=== PATIENT | female | born 1990 | race Caucasian/White ===

== ENCOUNTER → 2017-03-03 12:05 | Observation (INO) ==
[2017-03-02 19:12] LABS: Bilirubin,Urine Small (Negative); Blood,Urine Negative (Negative); Clarity,Urine Cloudy (Clear); Color,Urine Orange (Yellow); Glucose,Urine (UA) Normal (Normal); Ketones,Urine Trace mg/dL (Negative); Leukocyte Esterase,Urine Moderate (Negative); Nitrite,Urine Positive (Negative); Protein,Urine 30 mg/dL (Neg-Trace); Specific Gravity,Urine > 1.030 (1.010-1.025); Urobilinogen,Urine Normal (Normal)
[2017-03-02 19:14] LABS: Bacteria,Urine Moderate per hpf (None-Few); Hyaline Casts,Urine Few per lpf (None-Few); Squamous Epithelial Cell,Urine Many per lpf (None-Few); WBC,Urine 50-100 per hpf (0-3)
--- NOTE | 2017-03-02 19:30 | OB/GYN Progress Note ---
Date of Encounter: 03/02/17 Time of Encounter: 19:26 - Assessment and Plan (1) Fever and chills Current Visit: Yes Status: Acute CBC, rapid flu swab, and UA collected. Plan for 1 liter LR bolus. Tylenol PRN for fever. (2) Cough Current Visit: Yes Status: Acute (3) Nausea and vomiting during Current Visit: Yes Status: Acute (4) 37 weeks gestation of Current Visit: No Status: Acute Subjective - Subjective Principal diagnosis: fever Interval history: 27 year-old presenting at 37w2d with c/o nausea/vomiting, cough, congestion, and fever. She reports fever at home 101.1 this afternoon. She has had a cough off and on since October but was worst yesterday with general ill feeling. She went to urgent care and was given Benadryl. Today she has been unable to keep anything down and then developed the fever. This has been complicated by obesity, short interval, and anxiety/depression due to the loss of her 8 month old child to SIDS in December. Antepartum ROS: movement normal, contractions (occassional), no loss of fluid, no vaginal bleeding Objective - Vital Signs Vital Signs: Intake and Output 03/02/17 03/02/17 03/02/17 07:59 15:59 23:59 Other: Weight 126 kg Patient Weight 03/02/17 23:59 Weight 126 kg - Exam FHR comments: tachycardia with moderate variability Abdomen: Present: soft, gravid. Absent: tenderness Uterus: Absent: tenderness - Labs Labs: Abnormal lab results Urine Color [place] (Yellow) A 03/02/17 19:00 Urine Clarity Cloudy (Clear) A 03/02/17 19:00 Ur Specific [place] > 1.030 (1.010-1.025) H 03/02/17 19:00 Urine Protein 30 mg/dL (Neg-Trace) H 03/02/17 19:00 Urine Ketones Trace mg/dL (Negative) H 03/02/17 19:00 Urine Nitrite Positive (Negative) A 03/02/17 19:00 Urine Bilirubin Small (Negative) H 03/02/17 19:00 Ur Leukocyte Esterase Moderate (Negative) H 03/02/17 19:00 Urine Microscopic RBC 5-15 per hpf (0-3) H 03/02/17 19:00 Urine Microscopic WBC 50-100 per hpf (0-3) H 03/02/17 19:00 Ur Squamous Epith Cells Many per lpf (None-Few) H 03/02/17 19:00 Urine Bacteria Moderate per hpf (None-Few) H 03/02/17 19:00 Ur Culture Indicated? YES (NO) A 03/02/17 19:00
[2017-03-02 19:53] LABS: Basophils % 0.3 %; Eosinophils # 0.1 K/mcL (0.0-0.6); Eosinophils % 0.7 %; Hematocrit 36.5 % (35.3-44.9); Hemoglobin 11.5 g/dL (11.5-15.4); Immature Platelets 6.6 % (1.1-6.1); Lymphocytes # 0.8 K/mcL (0.6-4.6); Mean Corpuscular HGB Conc 31.5 g/dL (31.6-35.5); Mean Corpuscular Hemoglobin 24.1 pg (28.0-33.3); Mean Corpuscular Volume 76.5 fL (83.0-100.0); Monocytes # 0.7 K/mcL (0.0-1.3); Neutrophils # 8.4 K/mcL (1.6-8.9); Platelet Count 252 K/mcL (140-400); Red Blood Count 4.77 M/mcL (3.82-4.97); Red Cell Distribution Width 15.3 % (11.5-14.5)
--- NOTE | 2017-03-02 20:07 | OB/GYN History & Physical ---
Date of Encounter: 03/02/17 Time of Encounter: 20:07 Assessment and Plan (1) Fever and chills Current visit: Yes Status: Acute UA with + nitrites, moderate leukocytes, and WBCs. Given the fever, chills, nausea and vomiting, and tachycardia, I suspect pyelonephritis. Will obs overnight for IV antibiotics. Plan for Ancef 3 gram load followed by 1 gram every 8 hours. IV LR bolus to be followed by 125ml/hr. Continuous monitoring. Anticipate discharge home after 24 hours IV antibiotics. (2) Cough Current visit: Yes Status: Acute (3) Nausea and vomiting during Current visit: Yes Status: Acute (4) 37 weeks gestation of Current visit: No Status: Acute History of Present Illness Chief complaint: Pyelonephritis HPI: 27 year-old presenting at 37w2d with c/o nausea/vomiting, cough, congestion, and fever. She reports fever at home 101.1 this afternoon. She has had a cough off and on since October but was worst yesterday with general ill feeling. She went to urgent care and was given Benadryl. Today she has been unable to keep anything down and then developed the fever. This has been complicated by obesity, short interval, and anxiety/depression due to the loss of her 8 month old child to SIDS in December. Blood type O positive. Rubella immune. Serologies and GBS negative. Past Med Surg Social Fam HX - Past Medical History Medical history: non-contributory Psychiatric history: depression - Past Surgical History Surgical History: other - Social History Smoking Status: Unknown if ever smoked Smokeless Tobacco Status: No Alcohol use: unknown Drug use: none - Family History Mother Adopted: No Family Member Ethnicity: Non- Living Status: Still Living Hx Family Cardiac Disorders: No Hx Family Respiratory Disorders: No Hx Family Cancer: No Hx Family GI Disorders: No Hx Family Genitourinary Disorders: No Hx Family Endocrine Disorder: No Hx Family Musculoskeletal Disorders: No Hx Family Neuromuscular Disorders: No Hx Family Neurologic Disorders: No Hx Family HEENT Disorders: No Hx Family Autoimmune Disorders: No Hx Family Reproductive Disorders: No Hx Family Psychosocial Disorders: No Hx Family Medical Disorders: No Obstetrical History - Pregnancies : 4 Para: 3 Term: 1 : 2 Ab's: 0 Livin - History/Complications History/Complications: 8 month old son of SIDS in December Medications and Allergies Azithromycin [Zithromax] 250 mg PO DAILY #6 tablet 11/21/16 [Rx] Benzonatate [Tessalon] 200 mg PO TID PRN #30 capsule 11/21/16 [Rx] GuaiFENesin ER [Mucinex] 600 mg PO BID #20 tbbp.12hr 11/21/16 [Rx] Amoxicillin 875 mg PO BID #20 tablet 01/19/17 [Rx] Benzonatate [Tessalon] 200 mg PO TID PRN #30 capsule 01/19/17 [Rx] Allergies No Known Allergies Allergy (Verified 01/13/16 02:09) Review of System OB All systems PM: reviewed and no additional remarkable complaints except as stated Exam - Constitutional Constitutional: well developed, well nourished, mild distress, obese, diaphoretic - HEENT HEENT: Mucus Membranes Moist - Lungs Respiratory exam: CTAB - Cardiovascular Cardiovascular exam: +S1, +S2, tachycardia - Abdomen Abdomen: Present: gravid, non tender - Extremities Extremities exam: normal inspection - Uterus Uterus exam: Present: normal size. Absent: tender - Comments Comments: negative CVAT Results Result Diagrams: 03/02/17 19:47 Abnormal lab results MCV 76.5 fL (83.0-100.0) L 03/02/17 19:47 MCH 24.1 pg (28.0-33.3) L 03/02/17 19:47 MCHC 31.5 g/dL (31.6-35.5) L 03/02/17 19:47 RDW 15.3 % (11.5-14.5) H 03/02/17 19:47 Immature Plt Fraction 6.6 % (1.1-6.1) H 03/02/17 19:47 Urine Color [place] (Yellow) A 03/02/17 19:00 Urine Clarity Cloudy (Clear) A 03/02/17 19:00 Ur Specific [place] > 1.030 (1.010-1.025) H 03/02/17 19:00 Urine Protein 30 mg/dL (Neg-Trace) H 03/02/17 19:00 Urine Ketones Trace mg/dL (Negative) H 03/02/17 19:00 Urine Nitrite Positive (Negative) A 03/02/17 19:00 Urine Bilirubin Small (Negative) H 03/02/17 19:00 Ur Leukocyte Esterase Moderate (Negative) H 03/02/17 19:00 Urine Microscopic RBC 5-15 per hpf (0-3) H 03/02/17 19:00 Urine Microscopic WBC 50-100 per hpf (0-3) H 03/02/17 19:00 Ur Squamous Epith Cells Many per lpf (None-Few) H 03/02/17 19:00 Urine Bacteria Moderate per hpf (None-Few) H 03/02/17 19:00 Ur Culture Indicated? YES (NO) A 03/02/17 19:00 All other labs normal. - VTE Reasons for not Prescribing Prophylaxis: Treatment not Indicated - Low risk for VTE
[~2017-03-03 12:05] MED LIST: Acetaminophen 325 MG TABLET PO PRN; Ondansetron 4 MG/2 ML VIAL IVP PRN; Prenatal Vit/FA 1 EACH TABLET PO SCH; Ringers Solution, Lactated 1,000 ML IVC ONE; Ringers Solution, Lactated 1,000 ML ONE; ceFAZolin 1,000 MG in D5% in Water (Mini-Bag+) 100 ML IVPB SCH; ceFAZolin 2,000 MG in D5% in Water 100 ML IVPB ONE; ceFAZolin 3,000 MG in D5% in Water 100 ML IVPB ONE
--- NOTE | 2017-03-03 12:38 | Discharge Summary ---
Date of Encounter: 03/03/17 Time of Encounter: 11:50 - Discharge Diagnosis (1) Pyelonephritis Priority: Primary Status: Resolved Comments: Pt states pain and discomfort has improved. Afebrile since hospital admission, patient has received 2 doses of antibiotics. Patient reports good movement and denies leaking of fluid or vaginal bleeding, patient states she is feeling the occasional contraction, vaginal exam done patient is 5/50/-3. Patient states she does not feel the contractions are in what she would describe as a labor pattern, patient's are occasional and not painful. Patient to be discharged home on oral antibiotics Keflex 500 mg twice a day for 10 days, labor precautions given and instructions of when to return to triage for evaluation discussed with patient and both verbalized understanding. Plan of care discussed with Dr. Bose (2) 37 weeks gestation of Priority: Primary Status: Acute - Discharge Medications Home Medications: Azithromycin [Zithromax] 250 mg PO DAILY #6 tablet 11/21/16 [Rx] Benzonatate [Tessalon] 200 mg PO TID PRN #30 capsule 11/21/16 [Rx] GuaiFENesin ER [Mucinex] 600 mg PO BID #20 tbbp.12hr 11/21/16 [Rx] Amoxicillin 875 mg PO BID #20 tablet 01/19/17 [Rx] Benzonatate [Tessalon] 200 mg PO TID PRN #30 capsule 01/19/17 [Rx] Allergies/Adverse Reactions: Allergies No Known Allergies Allergy (Verified 03/03/17 01:52) Data Procedures and tests throughout hospitalization: Laboratory Tests 03/02/17 03/02/17 19:00 19:47 WBC 10.1 RBC 4.77 Hgb 11.5 Hct 36.5 MCV 76.5 L MCH 24.1 L MCHC 31.5 L RDW 15.3 H Plt Count 252 MPV 11.0 Immature Gran % 1.0 Seg Neutrophils % 83.0 Lymphocytes % 8.0 Monocytes % 7.0 Eosinophils % 0.7 Basophils % 0.3 Neutrophils # 8.4 Lymphocytes # 0.8 Monocytes # 0.7 Eosinophils # 0.1 Basophils # 0.0 Immature Plt Fraction 6.6 H Urine Color [place] A Urine Clarity Cloudy A Urine pH 6.0 Ur Specific [place] > 1.030 H Urine Protein 30 H Urine Glucose (UA) Normal Urine Ketones Trace H Urine Blood Negative Urine Nitrite Positive A Urine Bilirubin Small H Urine Urobilinogen Normal Ur Leukocyte Esterase Moderate H Urine Microscopic RBC 5-15 H Urine Microscopic WBC 50-100 H Ur Squamous Epith Cells Many H Urine Bacteria Moderate H Hyaline Casts Few Ur Culture Indicated? YES A Labs on day of discharge: Labs from last 24 hours 03/02/17 03/02/17 19:47 19:00 WBC 10.1 RBC 4.77 Hgb 11.5 Hct 36.5 MCV 76.5 L MCH 24.1 L MCHC 31.5 L RDW 15.3 H Plt Count 252 MPV 11.0 Immature Gran % 1.0 Seg Neutrophils % 83.0 Lymphocytes % 8.0 Monocytes % 7.0 Eosinophils % 0.7 Basophils % 0.3 Neutrophils # 8.4 Lymphocytes # 0.8 Monocytes # 0.7 Eosinophils # 0.1 Basophils # 0.0 Immature Plt Fraction 6.6 H Urine Color [place] A Urine Clarity Cloudy A Urine pH 6.0 Ur Specific [place] > 1.030 H Urine Protein 30 H Urine Glucose (UA) Normal Urine Ketones Trace H Urine Blood Negative Urine Nitrite Positive A Urine Bilirubin Small H Urine Urobilinogen Normal Ur Leukocyte Esterase Moderate H Urine Microscopic RBC 5-15 H Urine Microscopic WBC 50-100 H Ur Squamous Epith Cells Many H Urine Bacteria Moderate H Hyaline Casts Few Ur Culture Indicated? YES A Date of admission: 03/02/17 18:50 Primary care physician: Baldev Oswald MD Discharging clinician: Angeline Lorenzo Anticipated date of discharge: 03/03/17 - Patient Status Disposition: Home, Self-Care Condition: Good Functional capacity at discharge: independent ambulation Overall status at discharge: patient is back to baseline - Discharge Instructions Follow Up With: Baldev Oswald MD [Primary Care Provider] - Additional Instructions: LABOR AND DELIVERY DISCHARGE INSTRUCTIONS Signs and Symptoms to be Reported to your Doctor Immediately: * Sudden gush, continuous or intermittent lead of fluid from vagina (note the time of gush and color of fluid) * Onset of bright red vaginal bleeding with or without pain (if you had a vaginal exam during this visit you may notice some dark red spotting. This is normal.) * Contractions that are 5 minutes apart (from the beginning of one contraction to the beginning of the next) and last 45-60 seonds; contractions that you can no longer walk, talk or laugh through. * A change in the baby's activity. This could be an increase or decrease in activity. * Severe headache which does not go away with tylenol. * Sudden swelling in the face, hands, arms and/or legs. * Upper abdominal pain - sometimes associated with heartburn or nausea and is not relieved by Maalox, Mylanta or Tums. * Kick Counts __ One hour after a meal, lay down on one side in a quiet place. Count the number of time the baby moves during an hour. If less than 6 movements, notify your physician Diet: *Force fluids, 8 to 10 tall glasses of fluid per day - may include popsicles and jello *Limit caffeine - this includes chocolate, coffee, tea, any soft drink containing such as all grupo, Rashad Yellow and Mountain Dew Hospital Course MANAGER PURCHASING Hospital course: Patient admitted IV antibiotics given Time Attestation: Total time spent providing and/or coordinating discharge services: Exam - Constitutional General appearance IM: A&O X 3 - Respiratory Respiratory exam: Present: CTAB - Cardiovascular Cardiovascular exam IM: Present: RRR - GI/Abdominal GI/Abdominal exam IM: normal bowel sounds, soft (gravid) - Extremities Exam Extremities exam IM: Present: normal capillary refill, normal inspection - Neurological Exam Neurological exam: normal gait, oriented X3 - VTE Reasons for not Prescribing Prophylaxis: Treatment not Indicated - Low risk for VTE
== END | disposition home or self-care (01) ==
LOC: 1NENULAB
PROVIDERS: ADMIT Obstetrics & Gynecology; ATTEND Obstetrics & Gynecology

== ENCOUNTER 2017-03-08 18:56 | Inpatient (IN) ==
[2017-03-08 17:13] LABS: Bilirubin,Urine Negative (Negative); Blood,Urine Negative (Negative); Clarity,Urine Cloudy (Clear); Color,Urine Yellow (Yellow); Glucose,Urine (UA) Normal (Normal); Ketones,Urine Negative (Negative); Leukocyte Esterase,Urine Small (Negative); Nitrite,Urine Negative (Negative); PH,Urine 6.5 pH Units (5.0-8.0); Protein,Urine Negative (Neg-Trace); Specific Gravity,Urine 1.022 (1.010-1.025); Urobilinogen,Urine Normal (Normal)
[2017-03-08 17:14] LABS: Hyaline Casts,Urine None Seen per lpf (None-Few); Squamous Epithelial Cell,Urine Many per lpf (None-Few)
[2017-03-08 17:32] LABS: Bacteria,Urine Few per hpf (None-Few); RBC,Urine 0-3 per hpf (0-3)
[2017-03-08] MEDS ORDERED: Famotidine 20 MG/2 ML VIAL IVP PRN (18:58)
[2017-03-08] MEDS ORDERED: Metoclopramide 10 MG/2 ML VIAL IVP PRN (18:58)
[2017-03-08] MEDS ORDERED: Ondansetron 4 MG/2 ML VIAL IVP PRN (18:58)
[2017-03-08] MEDS ORDERED: Naloxone 0.4 MG/ML INJ IVP PRN (18:58)
[2017-03-08] MEDS ORDERED: Ringers Solution, Lactated 1,000 ML IVC SCH (19:00)
--- NOTE | 2017-03-08 19:10 | OB/GYN History & Physical ---
Date of Encounter: 03/08/17 Time of Encounter: 19:01 Assessment and Plan (1) 38 weeks gestation of Current visit: Yes Status: Acute (2) Obesity Current visit: Yes Status: Acute Qualifiers: Obesity type: due to excess calories Obesity severity: unspecified obesity severity Qualified Code(s): E66.09 - Other obesity due to excess calories (3) Spontaneous onset of labor Current visit: No Status: Acute Admit for labor. AROM when able. Epidural when requested. Anticipate . History of Present Illness Chief complaint: contractions HPI: Ms. Campbell is a 27 year old female presenting at 38 weeks gestation with c/o dysuria, pressure, and itching. She was treated for pyelonephritis last week and reports new onset of sx today. While in triage pt also reported increasing frequency and strength of contractions. Initial SVE was 6cm with progression to 7cm after 2 hours. This has been complicated by the loss of pt's 8month old son in December and associated depression. The is also complicated by obesity and borderline polyhydramnios. Pt denies other complaints today. Good FM. Blood type O positive. Serologies negative. GBS negative. Past Med Surg Social Fam HX - Past Medical History Medical history: non-contributory Psychiatric history: depression - Past Surgical History Surgical History: other - Social History Smoking Status: Unknown if ever smoked Smokeless Tobacco Status: No Alcohol use: unknown Drug use: none - Family History Mother Adopted: No Age: 43 Family Member Ethnicity: Non- Living Status: Still Living Hx Family Cardiac Disorders: No Hx Family Respiratory Disorders: No Hx Family Cancer: No Hx Family GI Disorders: No Hx Family Genitourinary Disorders: No Hx Family Endocrine Disorder: No Hx Family Musculoskeletal Disorders: No Hx Family Neuromuscular Disorders: No Hx Family Neurologic Disorders: No Hx Family HEENT Disorders: No Hx Family Autoimmune Disorders: No Hx Family Reproductive Disorders: No Hx Family Psychosocial Disorders: No Hx Family Medical Disorders: No Obstetrical History - Pregnancies : 4 Para: 3 Term: 1 : 2 Ab's: 0 Livin - History/Complications History/Complications: 1 12/2016 SIDS Medications and Allergies Amoxicillin 875 mg PO BID 03/08/17 [History] Allergies No Known Allergies Allergy (Verified 03/03/17 01:52) Review of System OB All systems PM: reviewed and no additional remarkable complaints except as stated Exam - Vital Signs Vital signs: Initial Vital Signs Temp Pulse Resp BP Pulse Ox 97.1 F L 89 14 120/68 99 03/08/17 16:38 03/08/17 16:38 03/08/17 16:38 03/08/17 16:38 03/08/17 16:38 - Constitutional Constitutional: well developed, well nourished, no acute distress, obese - HEENT HEENT: Mucus Membranes Moist - Lungs Respiratory exam: CTAB - Cardiovascular Cardiovascular exam: RRR, +S1, +S2 - Abdomen Abdomen: Present: gravid, non tender - Extremities Extremities exam: normal inspection - Vulva Vulva: bilateral: normal - Vagina Vagina: Present: normal moisture - Cervix Dilation: 7 Effacement: 80 (BBOW) Station: -1 - Anus/Rectum Anus/Rectum: Present: normal perianal skin Results Abnormal lab results Urine Clarity Cloudy (Clear) A 03/08/17 16:45 Ur Leukocyte Esterase Small (Negative) H 03/08/17 16:45 Urine Microscopic WBC 3-5 per hpf (0-3) H 03/08/17 16:45 Ur Squamous Epith Cells Many per lpf (None-Few) H 03/08/17 16:45 Ur Culture Indicated? YES (NO) A 03/08/17 16:45 All other labs normal. - VTE Reasons for not Prescribing Prophylaxis: Treatment not Indicated - Low risk for VTE
[2017-03-08] MEDS ORDERED: *HR* FentaNYL (PF) 100 MCG/2 ML VIAL EP ONE (19:49)
[2017-03-08] MEDS ORDERED: Ringers Solution, Lactated 500 ML IVC ONE (19:49)
[2017-03-08] MEDS ORDERED: EPHEDrine 50 MG/ML VIAL IVP PRN (19:49)
[2017-03-08] MEDS ORDERED: *HR* Ropivacaine/PF 0.2% 10 ML AMPUL EP ONE (19:49)
--- NOTE | 2017-03-08 19:52 | OB Labor Progress Note ---
Date of Encounter: 03/08/17 Time of Encounter: 19:49 Labor Progress Note - Subjective Subjective: Pt reports moderate pain with contractions. - Cervix Cervix: 7-8/90/-1 - Heart Tones Heart Tones: Category I - [place]: 2-3 minutes - Interventions Interventions: AROM for large amount clear fluid. - Plan Plan: Continue to monitor. Epidural when requested. Anticipate .
--- NOTE | 2017-03-08 19:53 | Anesthesia Evaluation PreOp ---
Date of Encounter: 03/08/17 Time of Encounter: 19:45 - Past History Planned Operation: Labor Epidural Cardiac History: Denies any Significant Hx Pulmonary History: Denies Any Significant HX GRINDING SUPERVISOR History: Denies Any Significant HX Other Medical History: Denies Any Significant HX Anesthesia History: No Prior Anesthetic Complications, Past Anesthesia : Yes Alcohol Use: unknown Drug use: none Medications and Allergies Amoxicillin 875 mg PO BID 03/08/17 [History] Allergies No Known Allergies Allergy (Verified 03/03/17 01:52) - Meds/Allergy Pre-op Review Medications Reviewed: Yes Allergies Reviewed: Yes Beta Blockers on Current Med List: No Anesthesia Exam Last Vital Signs Temp 97.1 F L 03/08/17 16:38 Pulse 89 03/08/17 16:38 Resp 14 03/08/17 16:38 BP 120/68 03/08/17 16:38 Pulse Ox 99 03/08/17 16:38 Height: 1.6m Weight: 129.5kg NPO (# of Hours): >4hr Pain Scale: 7 Pain Scale Used: Numeric (1 - 10) - HEENT Pupil (Motor): Pupils equal Mallampati: II Teeth: Normal Oral Opening: Greater than 3 - GRINDING SUPERVISOR LOC: Oriented GRINDING SUPERVISOR Motor: Normal RUE, Normal LUE, Normal RLE, Normal LLE, Normal Face GRINDING SUPERVISOR Sensory: Normal: RUE, LUE, RLE, LLE, Face - Cardiac Rhythm: Regular Murmur: None JVD: No Carotid Bruit: No - Pulmonary Breath Sounds: bilateral Clear Respiratory Effort: Symmetrical Anesthesia Assess/Plan ASA Score: 3 (BMI >50) Modified Neo Scale for Level of Consciousness: Cooperative, oriented, and tranquil Anesthetic Plan: Regional Monitoring Plan: Standard Monitors Recovery Plan: Other
[2017-03-08] MEDS ORDERED: *HR* FentaNYL (PF) 100 MCG/2 ML VIAL ONE (19:55)
[2017-03-08] MEDS ORDERED: Epidural Premix (fent/bupiv) 110 ML EP SCH (20:00)
[2017-03-08 20:28] LABS: Basophils % 0.2 %; Eosinophils # 0.1 K/mcL (0.0-0.6); Eosinophils % 1.4 %; Hematocrit 36.2 % (35.3-44.9); Hemoglobin 11.2 g/dL (11.5-15.4); Immature Granulocytes % 1.3 % (0-4); Lymphocytes # 2.3 K/mcL (0.6-4.6); Lymphocytes % 22.5 %; Mean Corpuscular HGB Conc 30.9 g/dL (31.6-35.5); Mean Corpuscular Hemoglobin 23.9 pg (28.0-33.3); Mean Corpuscular Volume 77.4 fL (83.0-100.0); Mean Platelet Volume 11.1 fL (9.4-12.4); Monocytes # 0.5 K/mcL (0.0-1.3); Monocytes % 5.3 %; Platelet Count 283 K/mcL (140-400); Red Blood Count 4.68 M/mcL (3.82-4.97); Red Cell Distribution Width 15.3 % (11.5-14.5); Segmented Neutrophils % 69.3 %
[2017-03-08] MEDS ORDERED: Oxytocin 20 units/ LR 1000 mL 20 UNIT/1,000 ML BAG IVC ONE (21:30)
--- NOTE | 2017-03-08 22:09 | OB/GYN Procedure Note ---
Delivery - Delivery Date: 03/08/17 Provider: Charmaine Barker Intrapartum events: polyhydramnios Delivery induction: none Delivery augmentation: rupture of membranes Delivery monitor: external FHT, external uterine Anesthesia: epidural Estimated Blood Loss: 150 - (s) A Delivery Date: 03/08/17 Delivery Time: 21:32 Presentation: vertex Position: OA Route of delivery: Gender: Male Viability: Viable Pounds: 8 Ounces: 10 Weight Gram: 3920 kg at 1 minute: 8 at 5 mins: 9 Shoulder Dystocia: not encountered Specimens collected: cord blood Placenta: spontaneous Cord: 3 umbilical vessels - Repair Episiotomy: none Laceration Description: Perineal - 1st Degree - Complications Delivery complications: none - Disposition Mom disposition: stable in LDR [place] disposition: stable in LDR - Comments Comments: Pt presented in active labor. She underwent AROM augmentation and received epidural anesthesia prior to progressing to complete and +3. She pushed effectively to deliver a viable male infant weighing 8lbs 10oz with apgars 8 at one minute and 9 at five minutes. After pulsations ceased the cord was clamped and cut and the placenta delivered spontaneous and intact. A first degree perineal laceration was repaired with 3-0 Vicryl. EBL 150ml. Mother and baby stable in kangaroo care following delivery.
[2017-03-08] MEDS ORDERED: Measles/Mumps/Rubella Vacc 0.5 ML VIAL SQ PRN (23:21)
[2017-03-08] MEDS ORDERED: Oxytocin 20 units/ LR 1000 mL 20 UNIT/1,000 ML BAG IVC SCH (23:21)
[2017-03-08] MEDS ORDERED: Acetaminophen 325 MG TABLET PO PRN (23:21)
[2017-03-09] MEDS: Ibuprofen 600 MG TABLET PO PRN ×2 (02:28→13:11)
[2017-03-09 08:01] VITALS: BP 106/68
[2017-03-09] MEDS ORDERED: Prenatal Vit/FA 1 EACH TABLET PO SCH (09:00)
--- NOTE | 2017-03-09 09:46 | Discharge Summary ---
Date of Encounter: 03/09/17 Time of Encounter: 09:43 - Discharge Diagnosis (1) Vaginal delivery Priority: Primary Status: Acute Comments: Patient states feels well, pain well managed. desires discharge tonight when baby can discharge. - Discharge Medications Prescriptions: Ibuprofen [Motrin] 600 mg PO Q6HR PRN #60 tablet PRN Reason: Cramping Docusate [Colace] 100 mg PO BID #60 capsule Home Medications: Acetaminophen [Tylenol] 650 mg PO Q6HR PRN #0 tablet 03/09/17 [Rx] Docusate [Colace] 100 mg PO BID #60 capsule 03/09/17 [Rx] Ibuprofen [Motrin] 600 mg PO Q6HR PRN #60 tablet 03/09/17 [Rx] Vit/FA 1 each PO DAILY tablet 03/09/17 [Rx] Allergies/Adverse Reactions: Allergies No Known Allergies Allergy (Verified 03/03/17 01:52) Data Procedures and tests throughout hospitalization: Laboratory Tests 03/08/17 03/08/17 16:45 20:00 WBC 10.2 RBC 4.68 Hgb 11.2 L Hct 36.2 MCV 77.4 L MCH 23.9 L MCHC 30.9 L RDW 15.3 H Plt Count 283 MPV 11.1 Immature Gran % 1.3 Seg Neutrophils % 69.3 Lymphocytes % 22.5 Monocytes % 5.3 Eosinophils % 1.4 Basophils % 0.2 Neutrophils # 7.0 Lymphocytes # 2.3 Monocytes # 0.5 Eosinophils # 0.1 Basophils # 0.0 Urine Color Yellow Urine Clarity Cloudy A Urine pH 6.5 Ur Specific [place] 1.022 Urine Protein Negative Urine Glucose (UA) Normal Urine Ketones Negative Urine Blood Negative Urine Nitrite Negative Urine Bilirubin Negative Urine Urobilinogen Normal Ur Leukocyte Esterase Small H Urine Microscopic RBC 0-3 Urine Microscopic WBC 3-5 H Ur Squamous Epith Cells Many H Urine Bacteria Few Hyaline Casts None Seen Ur Culture Indicated? YES A Labs on day of discharge: Labs from last 24 hours 03/08/17 03/08/17 20:00 16:45 WBC 10.2 RBC 4.68 Hgb 11.2 L Hct 36.2 MCV 77.4 L MCH 23.9 L MCHC 30.9 L RDW 15.3 H Plt Count 283 MPV 11.1 Immature Gran % 1.3 Seg Neutrophils % 69.3 Lymphocytes % 22.5 Monocytes % 5.3 Eosinophils % 1.4 Basophils % 0.2 Neutrophils # 7.0 Lymphocytes # 2.3 Monocytes # 0.5 Eosinophils # 0.1 Basophils # 0.0 Urine Color Yellow Urine Clarity Cloudy A Urine pH 6.5 Ur Specific [place] 1.022 Urine Protein Negative Urine Glucose (UA) Normal Urine Ketones Negative Urine Blood Negative Urine Nitrite Negative Urine Bilirubin Negative Urine Urobilinogen Normal Ur Leukocyte Esterase Small H Urine Microscopic RBC 0-3 Urine Microscopic WBC 3-5 H Ur Squamous Epith Cells Many H Urine Bacteria Few Hyaline Casts None Seen Ur Culture Indicated? YES A Date of admission: 03/08/17 18:56 Primary care physician: Baldev Oswald MD Consults: 03/08/17 23:21 Consult to [place] [CONS] Routine Reason for SW Consult: loss of 8month old to SIDS in December, concern for depression. Discharging clinician: Angeline Lorenzo Anticipated date of discharge: 03/09/17 - Patient Status Disposition: Home, Self-Care Condition: Good Functional capacity at discharge: independent ambulation Overall status at discharge: patient is back to baseline - Discharge Instructions Follow Up With: Baldev Oswald MD [Primary Care Provider] - - Diet and Activity Activity: resume usual activities as tolerated Diet: regular diet Hospital Course Reason for admission: IUP at term Delivery: Episiotomy: none Laceration: 1st degree Other procedures: none complications: none Discharge diagnosis: IUP at term delivered [place] baby: male Hospital course: Delivery - Delivery Date: 03/08/17 Provider: Charmaine Barker Intrapartum events: polyhydramnios Delivery induction: none Delivery augmentation: rupture of membranes Delivery monitor: external FHT, external uterine Anesthesia: epidural Estimated Blood Loss: 150 - Infant (s) Infant A Delivery Date: 03/08/17 Infant Delivery Time: 21:32 Presentation: vertex Position: OA Route of delivery: Gender: Male Viability: Viable Pounds: 8 Ounces: 10 Weight Gram: 3920 kg at 1 minute: 8 at 5 mins: 9 Shoulder Dystocia: not encountered Specimens collected: cord blood Placenta: spontaneous Cord: 3 umbilical vessels - Repair Episiotomy: none Laceration Description: Perineal - 1st Degree - Complications Delivery complications: none - Disposition Mom disposition: stable in PP and appropriate for discharge Time Attestation: Total time spent providing and/or coordinating discharge services: Time Spent: Less than 30 minutes Exam - Constitutional Vitals: Temp Pulse Resp BP Pulse Ox 97.8 F 71 18 106/68 99 03/09/17 07:50 03/09/17 07:50 03/09/17 07:50 03/09/17 07:50 03/09/17 07:50 General appearance IM: A&O X 3 - Respiratory Respiratory exam: Present: CTAB - Cardiovascular Cardiovascular exam IM: Present: RRR, +S1, +S2 - GI/Abdominal GI/Abdominal exam IM: normal bowel sounds, soft - Uterine Tone: Firm Uterus Position: Midline - Extremities Exam Extremities exam IM: Present: normal capillary refill, normal inspection - Neurological Exam Neurological exam: oriented X3 - Psychiatric Additional comments: reports stable mood.
== END 2017-03-09 14:00 | disposition home or self-care (01) | DRG 560 ==
LOC: 1NENULAB → 1NENUOBS 03-09 00:30
PROVIDERS: ADMIT Registered Nurse; ATTEND Obstetrics & Gynecology

== ENCOUNTER 2018-03-08 16:49 | Observation (INO) ==
[2018-03-08 17:17] LABS: Bilirubin,Urine Negative (Negative); Blood,Urine Negative (Negative); Clarity,Urine Clear (Clear); Color,Urine Yellow (Yellow); Glucose,Urine (UA) Normal (Normal); Ketones,Urine Negative (Negative); Leukocyte Esterase,Urine Small (Negative); Nitrite,Urine Negative (Negative); Protein,Urine Negative (Neg-Trace); Specific Gravity,Urine 1.029 (1.010-1.025); Urobilinogen,Urine Normal (Normal)
[2018-03-08 17:35] LABS: RBC,Urine 0-3 per hpf (0-3); Squamous Epithelial Cell,Urine Few per lpf (None-Few)
[2018-03-08 17:44] LABS: Hematocrit 40.9 % (35.3-44.9); Hemoglobin 12.7 g/dL (11.5-15.4); Mean Corpuscular HGB Conc 31.1 g/dL (31.6-35.5); Mean Corpuscular Hemoglobin 24.7 pg (28.0-33.3); Mean Corpuscular Volume 79.6 fL (83.0-100.0); Mean Platelet Volume 10.9 fL (9.4-12.4); Platelet Count 314 K/mcL (140-400); Red Blood Count 5.14 M/mcL (3.82-4.97); Red Cell Distribution Width 13.9 % (11.5-14.5)
[2018-03-08 18:07] LABS: Alanine Aminotransferase 24 Units/L (7-52); Albumin 4.1 g/dL (3.5-5.7); Albumin/Globulin Ratio 1.3 (1.1-2.2); Alkaline Phosphatase 94 Units/L (34-104); Aspartate Amino Transferase 19 Units/L (13-39); BUN/Creatinine Ratio 16 (6-26); Bilirubin,Direct 0.1 mg/dL (0.0-0.2); Bilirubin,Indirect 0.3 mg/dL (0.0-1.2); Bilirubin,Total 0.4 mg/dL (0.3-1.0); Blood Urea Nitrogen 12 mg/dL (6-20); Calcium 9.7 mg/dL (8.6-10.3); Carbon Dioxide 26 mEq/L (23-29); Chloride 107 mEq/L (98-107); Globulin 3.2 g/dL (2.4-3.5); Glucose 105 mg/dL (70-105); Lipase 14 Units/L (11-82); Osmolality,Calculated 286 (280-300); Potassium 4.4 mEq/L (3.5-5.1); Sodium 138 mEq/L (136-145); Total Protein 7.3 g/dL (6.4-8.9); eGFR For African Americans > 60 (> 60); eGFR For Non-African Americans > 60 (> 60)
--- NOTE | 2018-03-08 20:49 | Emergency Department Note ---
Disposition Clinical Impression: Incarcerated hernia of abdominal cavity Disposition: Admitted As Inpatient Condition: Good Referrals: Baldev Oswald MD [Primary Care Provider] - Forms: ED Satisfaction Letter, Work/School Release Time of Disposition: 00:05 Abdominal Pain HPI - General Chief Complaint: ED Abdominal Pain Stated Complaint: abd pain Time Seen by Provider: 03/08/18 18:29 Source: patient Mode of arrival: ambulatory Limitations: no limitations Nursing Notes Reviewed: Yes Vital Signs Reviewed: Yes - History of Present Illness HPI Narrative: Patient presents to the ED with the chief complaint of abdominal pain. Patient reports she woke up with the pain this morning and it is mid abdomen and sometimes radiates to her left side and left lower quadrant. No associated fever, chills, chest pain or shortness of breath. No nausea, vomiting or diarrhea. No hematuria or dysuria. No abdominal surgeries. States the pain has been constant, but does worsen. Nothing seems to make it better or worse. Has had a normal appetite. Pain Scale: 8 - Related Data Previous Rx's Medication Instructions Recorded Acetaminophen [Tylenol] 650 mg PO Q6HR PRN #0 tablet 03/09/17 Docusate [Colace] 100 mg PO BID #60 capsule 03/09/17 Ibuprofen [Motrin] 600 mg PO Q6HR PRN #60 tablet 03/09/17 Vit/FA 1 each PO DAILY tablet 03/09/17 Fluconazole [Diflucan] 150 mg PO Q72H #2 tab 03/14/17 Sulfamethoxazole/Trimeth DS 1 each PO BID #20 tablet 03/14/17 [Bactrim DS] Allergies Allergy/AdvReac Type Severity Reaction Status Date / Time No Known Allergies Allergy Verified 03/03/17 01:52 Review of Systems: As reviewed in the HPI. All other systems reviewed are negative or normal. Abdominal Pain PMH - Past Medical History Medical history: Reports: no medical history Female Surgical History: Reports: no surgical history FOR[employer] FI[employer]HTER history: Reports: spontaneous , other Psychiatric history: Reports: depression - Social History Smoking status: Never smoker Alcohol use: Reports: none Drug use: Reports: none Physical Exam - General Limitations: no limitations General appearance: alert, in no apparent distress, obese - Head Head exam: atraumatic, normocephalic, normal inspection - Eye Eye exam: Present: normal appearance, PERRL, EOMI - Respiratory Respiratory exam: Present: normal lung sounds bilaterally - Cardiovascular Cardiovascular exam: Present: regular rate, normal rhythm, normal heart sounds - Abdominal Exam Abdominal exam: Present: soft, tenderness, hernia (superior to umbilicus but poorly localizable due to size, tenderness in this area focally, and body habitus ). Absent: distention, guarding, rebound Abdominal tenderness: Present: diffuse, mild - Extremities Exam Extremities exam: Present: normal inspection, full ROM. Absent: tenderness, pedal edema - Neurological Exam Neurological exam: Present: alert, oriented X3 - Psychiatric Psychiatric exam: Present: normal affect, normal mood - Skin Skin exam: Present: warm, dry, intact, normal color Course Course Narrative: Patient presents ED with abdominal pain. Concerned over possible incarcerated/ strangulated hernia but overall looks well until moving or palpation. Will get CT once preg is back. - Reevaluation(s) Reevaluation #1: Spoke with the on-call surgeon, Dr. Johnson. He will admit the patient and see her in the morning. Recommended making her nothing by mouth, pain control. I do think if we can get her more comfortable that this may relax her abdominal muscles. However, she is unable to lay flat due to the pain and has been laying on her side. We will start her on some IV fluids and pain medication. She had seen Dr. Magdaleno in the past for colonoscopy, but she states she does not have any preference as to which surgical group would see her and she was agreeable with seeing Dr. Johnson. Time: 00:04 Vital Signs Temperature 98.1 F 03/08/18 17:03 Pulse Rate 71 03/08/18 17:03 Respiratory Rate 18 03/08/18 17:03 Blood Pressure 142/82 03/08/18 17:03 O2 Sat by Pulse Oximetry 100 03/08/18 17:03 Temperature 98.1 F 03/08/18 21:28 Pulse Rate 73 03/08/18 22:34 Respiratory Rate 14 03/08/18 22:34 Blood Pressure 137/71 03/08/18 22:34 O2 Sat by Pulse Oximetry 100 03/08/18 22:34 Oxygen Delivery Oxygen Delivery Room Air Abdominal Pain - Lab Data Result diagrams: 03/08/18 17:34 03/08/18 17:34 Lab Results 04/26/18 04/26/18 04/26/18 Range/Units 17:00 17:00 17:34 WBC 10.2 (4.3-11.1) K/mcL RBC 5.14 H (3.82-4.97) M/mcL Hgb 12.7 (11.5-15.4) g/dL Hct 40.9 (35.3-44.9) % MCV 79.6 L (83.0-100.0) fL MCH 24.7 L (28.0-33.3) pg MCHC 31.1 L (31.6-35.5) g/dL RDW 13.9 (11.5-14.5) % Plt Count 314 (140-400) K/mcL MPV 10.9 (9.4-12.4) fL Sodium (136-145) mEq/L Potassium (3.5-5.1) mEq/L Chloride (98-107) mEq/L Carbon Dioxide (23-29) mEq/L BUN (6-20) mg/dL Creatinine (0.60-1.20) mg/dL Est GFR ( Amer) (> 60) Est GFR (Non-Af Amer) (> 60) BUN/Creatinine Ratio (6-26) Glucose (70-105) mg/dL Calculated Osmolality (280-300) Calcium (8.6-10.3) mg/dL Total Bilirubin (0.3-1.0) mg/dL Direct Bilirubin (0.0-0.2) mg/dL Indirect Bilirubin (0.0-1.2) mg/dL AST (13-39) Units/L ALT (7-52) Units/L Alkaline Phosphatase (34-104) Units/L Serum Total Protein (6.4-8.9) g/dL Albumin (3.5-5.7) g/dL Globulin (2.4-3.5) g/dL Albumin/Globulin Ratio (1.1-2.2) Lipase (11-82) Units/L Urine Color Yellow (Yellow) Urine Clarity Clear (Clear) Urine pH 6.0 (5.0-8.0) pH Units Ur Specific [place] 1.029 H (1.010-1.025) Urine Protein Negative (Neg-Trace) mg/dL Urine Glucose (UA) Normal (Normal) mg/dL Urine Ketones Negative (Negative) mg/dL Urine Blood Negative (Negative) Urine Nitrite Negative (Negative) Urine Bilirubin Negative (Negative) Urine Urobilinogen Normal (Normal) mg/dL Ur Leukocyte Esterase Small H (Negative) Urine Microscopic RBC 0-3 (0-3) per hpf Urine Microscopic WBC 3-5 H (0-3) per hpf Ur Squamous Epith Cells Few (None-Few) per lpf Urine Test Negative (Negative) 03/08/18 Range/Units 17:34 WBC (4.3-11.1) K/mcL RBC (3.82-4.97) M/mcL Hgb (11.5-15.4) g/dL Hct (35.3-44.9) % MCV (83.0-100.0) fL MCH (28.0-33.3) pg MCHC (31.6-35.5) g/dL RDW (11.5-14.5) % Plt Count (140-400) K/mcL MPV (9.4-12.4) fL Sodium 138 (136-145) mEq/L Potassium 4.4 (3.5-5.1) mEq/L Chloride 107 (98-107) mEq/L Carbon Dioxide 26 (23-29) mEq/L BUN 12 (6-20) mg/dL Creatinine 0.75 (0.60-1.20) mg/dL Est GFR ( Amer) > 60 (> 60) Est GFR (Non-Af Amer) > 60 (> 60) BUN/Creatinine Ratio 16 (6-26) Glucose 105 (70-105) mg/dL Calculated Osmolality 286 (280-300) Calcium 9.7 (8.6-10.3) mg/dL Total Bilirubin 0.4 (0.3-1.0) mg/dL Direct Bilirubin 0.1 (0.0-0.2) mg/dL Indirect Bilirubin 0.3 (0.0-1.2) mg/dL AST 19 (13-39) Units/L ALT 24 (7-52) Units/L Alkaline Phosphatase 94 (34-104) Units/L Serum Total Protein 7.3 (6.4-8.9) g/dL Albumin 4.1 (3.5-5.7) g/dL Globulin 3.2 (2.4-3.5) g/dL Albumin/Globulin Ratio 1.3 (1.1-2.2) Lipase 14 (11-82) Units/L Urine Color (Yellow) Urine Clarity (Clear) Urine pH (5.0-8.0) pH Units Ur Specific [place] (1.010-1.025) Urine Protein (Neg-Trace) mg/dL Urine Glucose (UA) (Normal) mg/dL Urine Ketones (Negative) mg/dL Urine Blood (Negative) Urine Nitrite (Negative) Urine Bilirubin (Negative) Urine Urobilinogen (Normal) mg/dL Ur Leukocyte Esterase (Negative) Urine Microscopic RBC (0-3) per hpf Urine Microscopic WBC (0-3) per hpf Ur Squamous Epith Cells (None-Few) per lpf Urine Test (Negative)
[2018-03-08] MEDS ORDERED: Isovue-370 500 ML INFUS..BTL IV ONE (21:22)
[2018-03-08] MEDS ORDERED: Ketorolac 15 MG/ML VIAL IVP ONE (22:35)
[2018-03-09] MEDS ORDERED: *HR* Morphine 2 MG/ML SYRINGE IVP ONE (00:06)
--- NOTE | 2018-03-09 00:18 | Emergency Department Note ---
Disposition Clinical Impression: Incarcerated hernia of abdominal cavity Disposition: Admitted As Inpatient Condition: Good Referrals: Baldev Oswald MD [Primary Care Provider] - Forms: ED Satisfaction Letter, Work/School Release General Adult HPI - General Chief complaint: ED Abdominal Pain Stated complaint: abd pain Time Seen by Provider: 03/08/18 18:29 Source: patient Mode of arrival: ambulatory Limitations: no limitations - History of Present Illness Pain Scale: 8 - Related Data Previous Rx's Medication Instructions Recorded Acetaminophen [Tylenol] 650 mg PO Q6HR PRN #0 tablet 03/09/17 Docusate [Colace] 100 mg PO BID #60 capsule 03/09/17 Ibuprofen [Motrin] 600 mg PO Q6HR PRN #60 tablet 03/09/17 Vit/FA 1 each PO DAILY tablet 03/09/17 Fluconazole [Diflucan] 150 mg PO Q72H #2 tab 03/14/17 Sulfamethoxazole/Trimeth DS 1 each PO BID #20 tablet 03/14/17 [Bactrim DS] Allergies Allergy/AdvReac Type Severity Reaction Status Date / Time No Known Allergies Allergy Verified 03/03/17 01:52 Past Medical History - Past Medical History Medical history: Reports: no medical history Surgical history: Reports: other Psychiatric history: Reports: depression PRESS SET UP PERSON history: Reports: spontaneous , other - Social History Smoking Status: Never smoker Smokeless Tobacco Status: No Alcohol use: Reports: none Drug use: Reports: none Physical Exam - General Limitations: no limitations General appearance: alert, in no apparent distress, obese Course Vital Signs Temperature 98.1 F 03/08/18 17:03 Pulse Rate 71 03/08/18 17:03 Respiratory Rate 18 03/08/18 17:03 Blood Pressure 142/82 03/08/18 17:03 O2 Sat by Pulse Oximetry 100 03/08/18 17:03 Temperature 98.1 F 03/08/18 21:28 Pulse Rate 73 03/08/18 22:34 Respiratory Rate 14 03/08/18 22:34 Blood Pressure 137/71 03/08/18 22:34 O2 Sat by Pulse Oximetry 100 03/08/18 22:34 Oxygen Delivery Oxygen Delivery Room Air Medical Decision Making - Lab Data Result diagrams: 03/08/18 17:34 03/08/18 17:34 Lab Results 03/08/18 03/08/18 03/08/18 Range/Units 17:00 17:00 17:34 WBC 10.2 (4.3-11.1) K/mcL RBC 5.14 H (3.82-4.97) M/mcL Hgb 12.7 (11.5-15.4) g/dL Hct 40.9 (35.3-44.9) % MCV 79.6 L (83.0-100.0) fL MCH 24.7 L (28.0-33.3) pg MCHC 31.1 L (31.6-35.5) g/dL RDW 13.9 (11.5-14.5) % Plt Count 314 (140-400) K/mcL MPV 10.9 (9.4-12.4) fL Sodium (136-145) mEq/L Potassium (3.5-5.1) mEq/L Chloride (98-107) mEq/L Carbon Dioxide (23-29) mEq/L BUN (6-20) mg/dL Creatinine (0.60-1.20) mg/dL Est GFR ( Amer) (> 60) Est GFR (Non-Af Amer) (> 60) BUN/Creatinine Ratio (6-26) Glucose (70-105) mg/dL Calculated Osmolality (280-300) Calcium (8.6-10.3) mg/dL Total Bilirubin (0.3-1.0) mg/dL Direct Bilirubin (0.0-0.2) mg/dL Indirect Bilirubin (0.0-1.2) mg/dL AST (13-39) Units/L ALT (7-52) Units/L Alkaline Phosphatase (34-104) Units/L Serum Total Protein (6.4-8.9) g/dL Albumin (3.5-5.7) g/dL Globulin (2.4-3.5) g/dL Albumin/Globulin Ratio (1.1-2.2) Lipase (11-82) Units/L Urine Color Yellow (Yellow) Urine Clarity Clear (Clear) Urine pH 6.0 (5.0-8.0) pH Units Ur Specific [place] 1.029 H (1.010-1.025) Urine Protein Negative (Neg-Trace) mg/dL Urine Glucose (UA) Normal (Normal) mg/dL Urine Ketones Negative (Negative) mg/dL Urine Blood Negative (Negative) Urine Nitrite Negative (Negative) Urine Bilirubin Negative (Negative) Urine Urobilinogen Normal (Normal) mg/dL Ur Leukocyte Esterase Small H (Negative) Urine Microscopic RBC 0-3 (0-3) per hpf Urine Microscopic WBC 3-5 H (0-3) per hpf Ur Squamous Epith Cells Few (None-Few) per lpf Urine Test Negative (Negative) 03/08/18 Range/Units 17:34 WBC (4.3-11.1) K/mcL RBC (3.82-4.97) M/mcL Hgb (11.5-15.4) g/dL Hct (35.3-44.9) % MCV (83.0-100.0) fL MCH (28.0-33.3) pg MCHC (31.6-35.5) g/dL RDW (11.5-14.5) % Plt Count (140-400) K/mcL MPV (9.4-12.4) fL Sodium 138 (136-145) mEq/L Potassium 4.4 (3.5-5.1) mEq/L Chloride 107 (98-107) mEq/L Carbon Dioxide 26 (23-29) mEq/L BUN 12 (6-20) mg/dL Creatinine 0.75 (0.60-1.20) mg/dL Est GFR ( Amer) > 60 (> 60) Est GFR (Non-Af Amer) > 60 (> 60) BUN/Creatinine Ratio 16 (6-26) Glucose 105 (70-105) mg/dL Calculated Osmolality 286 (280-300) Calcium 9.7 (8.6-10.3) mg/dL Total Bilirubin 0.4 (0.3-1.0) mg/dL Direct Bilirubin 0.1 (0.0-0.2) mg/dL Indirect Bilirubin 0.3 (0.0-1.2) mg/dL AST 19 (13-39) Units/L ALT 24 (7-52) Units/L Alkaline Phosphatase 94 (34-104) Units/L Serum Total Protein 7.3 (6.4-8.9) g/dL Albumin 4.1 (3.5-5.7) g/dL Globulin 3.2 (2.4-3.5) g/dL Albumin/Globulin Ratio 1.3 (1.1-2.2) Lipase 14 (11-82) Units/L Urine Color (Yellow) Urine Clarity (Clear) Urine pH (5.0-8.0) pH Units Ur Specific [place] (1.010-1.025) Urine Protein (Neg-Trace) mg/dL Urine Glucose (UA) (Normal) mg/dL Urine Ketones (Negative) mg/dL Urine Blood (Negative) Urine Nitrite (Negative) Urine Bilirubin (Negative) Urine Urobilinogen (Normal) mg/dL Ur Leukocyte Esterase (Negative) Urine Microscopic RBC (0-3) per hpf Urine Microscopic WBC (0-3) per hpf Ur Squamous Epith Cells (None-Few) per lpf Urine Test (Negative) Attestation Statement - Attestation Attestation: I examined this patient and my medical decision-making was reviewed with the Resident Physician, Dr. Wang. I agree with the documented findings, disposition and treatment plan as described except to the extent set forth below. Patient is a 28-year-old white female with no prior surgical history who presents to the emergency department with mid abdominal pain that is just left of the umbilicus that radiates in the left lower quadrant associated with some mild nausea. Patient states this pain awakened her from sleep and has been ongoing throughout the day with no improvement. Patient denies any fevers or chills, no urinary symptoms no flank pain, no bowel changes or vomiting. Patient has had a decent appetite today and eating without difficulty and moving her bowels appropriately. Patient denies any prior surgeries to her abdomen but has distinct isolated area of its very tender to palpation in her left mid abdomen. I agree with patient's physical exam findings as documented. Patient without her no signs on examination, vital signs are stable. Patient underwent lab evaluation which was all within normal limits. Urine was negative with negative test. Patient had CT imaging of the abdomen and pelvis which showed a small umbilical hernia with mesenteric fat and significant inflammation and inflammatory stranding around the area concerning for incarcerated hernia. We are unable to actually palpate a distinct mass within the abdominal wall for attempted reduction at bedside. Patient will receive pain control and case was discussed with Dr. grant who is distribution center assistant for surgery. He agreed to consult on the patient patient was admitted to the hospitalist service. She remains hemodynamically stable at this time
[2018-03-09] MEDS ORDERED: *HR* OxyCODONE Immed Rel 5 MG TABLET PO PRN ×2 (03:00→18:56)
[2018-03-09] MEDS ORDERED: Ondansetron 4 MG/2 ML VIAL IVP PRN ×2 (03:01→20:39)
[2018-03-09] MEDS: Ringers Solution, Lactated 1,000 ML IVC SCH ×2 (03:32→21:02)
--- NOTE | 2018-03-09 10:19 | General Surg History&Physical ---
Date of Encounter: 03/09/18 Time of Encounter: 09:20 History of Present Illness Chief complaint: abdominal pain, incarcerated umbilical hernia HPI: Ms. Campbell is a 28 year old female referred for further evaluation and treatment after presenting to [facility] ED with abdominal pain. The patient was evaluated and referred to surgical services after CT abdomen/pelvis demonstrated an incarcerated fat-containing umbilical hernia. Patient's examination was limited by her body habitus and due to persisting pain and concerned that her hernia was not reduced the patient was referred for possible surgical intervention. Past medical history: Depression Surgical history: None Allergies: No known drug allergies Medications: Patient is currently taking no home meds Social history: G4, P4; the patient describes one of her living children dying early in life; the patient has smoke; she admits to rare alcoholic beverage; she denies any illicit drug use Physical examination: Obese, age-appropriate female resting comfortably in her hospital bed. She is 1.6 m tall, 118.8 kg, BMI 46.4. The patient has remained afebrile since presentation to the emergency department; currently 98.3, pulse 87, respirations 18, blood pressure 127/73. SPO2 on room air 99% Skin: Warm, no obvious jaundice; multiple cutaneous tattoos are evident Lungs: Clear bilaterally; no abdominal pain with deep inspiration Cardiac: Regular rate, no appreciable murmurs Abdomen: Obese, soft, minimal mariam umbilical tenderness. The rest of the abdomen was nontender; bowel sounds were active. No rebound. An umbilical fascial defect approximately 2 cm is evident but is reducible on my examination. Extremities: No obvious clubbing, cyanosis, edema Laboratories: White count 10.2; hemoglobin 12.7, hematocrit 40.9. Platelet count 314,000. Electrolytes, BUN, creatinine within normal limits; LFTs within normal limits CT abdomen/pelvis was personally reviewed with [facility] - a periumbilical hernia measuring approximately 5 x 4.8 x 5.2 cm in size is evident ; the fascial defect measures approximately 2.3 cm. There was mesenteric fat prolapsing through the fascial defect without bowel involvement or bowel obstruction; inflammatory changes and fluid involving the mesenteric fat within the hernia sac is described. A prior CT, June 2017, was also reviewed and compared. This umbilical hernia has increased in size. Impression: 28-year-old morbidly obese female further surgical services after presenting to the emergency department with abdominal pain and evidence of an incarcerated periumbilical hernia. The hernia is currently reduced, the pain is diminished but persists. Treatment options include surgical repair during this hospitalization or discharge home to arrange for an outpatient, elective repair. The patient is expressed concern about her continuing pain and wishes to proceed with repair of the periumbilical hernia. Open repair was discussed using mesh. Risks include hemorrhage, infection, injury to adjacent structures , and recurrent hernia. Alternatives to open repair include laparoscopic or robotic repair with or without mesh. The use of mesh to repair the hernia was discussed in detail. Risk of the mesh include chronic pain, adhesions that may result in bowel obstruction and mesh erosion into adjacent bowel. Risk of hernia repair without mesh include recurrent hernia. The patient has expressed understanding and wishes to proceed with surgery. Open repair with mesh is planned. Surgical consent has been obtained. Past Med Surg Social Fam HX - Past Medical History Medical history: no medical history Psychiatric history: depression - Past Surgical History Surgical History: other - Social History Smoking Status: Never smoker Smokeless Tobacco Status: No Alcohol use: none Drug use: none - Family History Father Living Status: Still Living Hx Family Cardiac Disorders: Yes (HTN) Mother Adopted: No Family Member Ethnicity: Non- Living Status: Still Living Hx Family Cardiac Disorders: No Hx Family Respiratory Disorders: No Hx Family Cancer: No Hx Family GI Disorders: No Hx Family Endocrine Disorder: No Hx Family Neuromuscular Disorders: No Hx Family Neurologic Disorders: No Hx Family HEENT Disorders: No Hx Family Autoimmune Disorders: No Medications and Allergies No Known Home Drugs 03/09/18 [History] 3 Allergy/AdvReac Type Severity Reaction Status Date / Time No Known Allergies Allergy Verified 03/03/17 01:52 Review of Systems All systems PM: The remainder of the systems were reviewed and are negative General Surgery Exam Initial Vital Signs Temp Pulse Resp BP Pulse Ox 98.1 F 71 18 142/82 100 03/08/18 17:03 03/08/18 17:03 03/08/18 17:03 03/08/18 17:03 03/08/18 17:03 Results - Labs 03/08/18 17:34 03/08/18 17:34 Abnormal lab results RBC 5.14 M/mcL (3.82-4.97) H 03/08/18 17:34 MCV 79.6 fL (83.0-100.0) L 03/08/18 17:34 MCH 24.7 pg (28.0-33.3) L 03/08/18 17:34 MCHC 31.1 g/dL (31.6-35.5) L 03/08/18 17:34 Ur Specific [place] 1.029 (1.010-1.025) H 03/08/18 17:00 Ur Leukocyte Esterase Small (Negative) H 03/08/18 17:00 Urine Microscopic WBC 3-5 per hpf (0-3) H 03/08/18 17:00 All other labs normal.
[2018-03-09] MEDS ORDERED: Bupivacaine/EPI 1:200k 0.25%PF 10 ML VIAL INFILT ONE (18:31)
--- NOTE | 2018-03-09 18:32 | Anesthesia Evaluation PreOp ---
Date of Encounter: 03/09/18 Time of Encounter: 18:30 - Past History Planned Operation: Umbilical hernia repair Cardiac History: Denies any Significant Hx Pulmonary History: Denies Any Significant HX SENIOR DATA MODELER History: Denies Any Significant HX Other Medical History: Other (Obesity) : No Test: Negative Alcohol Use: none Drug use: none Medications and Allergies No Known Home Drugs 03/09/18 [History] 3 Allergy/AdvReac Type Severity Reaction Status Date / Time No Known Allergies Allergy Verified 03/03/17 01:52 - Meds/Allergy Pre-op Review Medications Reviewed: Yes Allergies Reviewed: Yes Beta Blockers on Current Med List: No Anesthesia Results - Labs 03/08/18 17:34 03/08/18 17:34 Laboratory Tests 03/08/18 03/08/18 17:00 17:34 Calcium 9.7 Total Bilirubin 0.4 Albumin 4.1 Globulin 3.2 Urine Test Negative Anesthesia Exam O2 Sat Height 1.6 m Weight 118.8 kg BMI 46 Vital Signs/O2 Sat, Most Current Temp Pulse Resp BP Pulse Ox 97.9 F 64 18 114/72 97 03/09/18 10:34 03/09/18 10:34 03/09/18 10:34 03/09/18 10:34 03/09/18 10:34 - HEENT Mallampati: I Teeth: Normal Oral Opening: Greater than 3 - SENIOR DATA MODELER LOC: Oriented - Cardiac Rhythm: Regular - Pulmonary Breath Sounds: bilateral Clear - Additional Findings Patient presented to ED with pain secondary to incarcerated omentum, which was reduced. Anesthesia Assess/Plan ASA Score: 1 Modified Neo Scale for Level of Consciousness: Cooperative, oriented, and tranquil Anesthetic Plan: General Monitoring Plan: Standard Monitors Recovery Plan: PACU Anes Supervising Prov Stmt: Patient informed and consented. Risks, benefits, and alternatives discussed. Patient wishes to proceed.
[2018-03-09] MEDS ORDERED: Ondansetron 4 MG/2 ML VIAL ONE (18:52)
[2018-03-09] MEDS ORDERED: *HR* FentaNYL (PF) 100 MCG/2 ML VIAL ONE (18:52)
[2018-03-09] MEDS ORDERED: Lidocaine -MPF 2% 2 ML VIAL ONE (18:52)
[2018-03-09] MEDS ORDERED: *HR* Propofol 200 MG/20 ML VIAL IVP ONE (18:52)
[2018-03-09] MEDS ORDERED: Dexamethasone 4 MG/ML VIAL ONE (18:52)
[2018-03-09] MEDS ORDERED: Bupivacaine/EPI 1:200k 0.5%PF 10 ML VIAL ONE (18:55)
[2018-03-09] MEDS ORDERED: *HR* Labetalol 20 MG/4 ML SYRINGE IVP PRN (18:56)
[2018-03-09] MEDS ORDERED: Famotidine 20 MG/2 ML VIAL ONE (18:56)
[2018-03-09] MEDS ORDERED: *HR* Promethazine 25 MG/ML VIAL IVP PRN (18:56)
[2018-03-09] MEDS ORDERED: Acetaminophen IV 1,000 MG/100 ML INFUS..BTL ONE (18:56)
[2018-03-09] MEDS ORDERED: MORPHINE SUL Oral CONC 10 MG/0.5 ML ORAL.SYG SL PRN (18:56)
[2018-03-09] MEDS ORDERED: Ketorolac 30 MG/ML VIAL ONE (19:20)
[2018-03-09] MEDS ORDERED: *HR* PHENYLEPHRINE 1,000 MCG/10 ML SYRINGE IVP ONE (19:23)
[2018-03-09] MEDS ORDERED: Acetaminophen 325 MG TABLET PO PRN ×2 (20:01→20:39)
--- NOTE | 2018-03-09 20:05 | Operative Note ---
Date of procedure: 03/09/18 Pre-op diagnosis: Incarcerated umbilical hernia Post-op diagnosis: same Procedure: Open repair incarcerated umbilical hernia with 6.4cm Bard ventralex hernia patch Implants: 6.4 cm Bard Ventralex hernia patch Complications: None apparent Anesthesia: GETA Local Anesthetics: 0.25% Sensorcaine HCL with Epinephrine 1:200,000 SubQ (cc) ( 15 mL) Surgeon: Marc Johnson Was there an graduate assistant athletic trainer present: No Estimated blood loss (cc): 10 IV fluids (cc): 500 Specimen: hernia sac Condition: stable Disposition: PACU Procedure in Detail: The patient was brought to the operating room and placed on the procedure table. The patient was appropriately identified as to person and procedure. The accuracy of this information was confirmed by the patient and the procedure team. The patient was then intubated and anesthetized under the supervision of Dr. Milan Vallejo. The abdomen was examined under anesthesia, tissue prolapsing through the umbilical fascial defect was reduced. The abdomen was then prepped and draped in usual sterile fashion. Several milliliters of 0.25% bupivacaine with 1-200,000 epinephrine was infiltrated into the infraumbilical skin. A small curvilinear incision was made with dissection extended to the fascia. Additional bupivacaine with epinephrine was infiltrated. The hernia sac was dissected from the surrounding tissue and entered atraumatically. The hernia sac was dissected to the fascial edges and excised. The fascial defect measured approximately 1.5 cm. There was no obvious bowel involvement. I selected a Bard 6.4 cm ventralex hernia patch to complete the repair. This prosthesis was placed subfascially. The mesh straps were used to approximate the mesh prosthesis to the anterior abdominal wall. Care was taken have no interpose tissue between the prosthesis and the anterior abdominal wall. The fascial defect was then closed with interrupted [id number] Vicryl incorporating the knitted polypropylene mesh layer of the composite hernia patch in the fascial closure. Additional bupivacaine with 1-200,000 units epinephrine was infiltrated. The subcutaneous tissues were approximated with horizontal mattress 3-0 Vicryl. The skin edges were approximated with running subcuticular 4-0 Vicryl. The incision was sealed with Dermabond dermal adhesive. The patient was taken to recovery in stable condition. Needle, sponge, and instrument counts were correct at the close of the case. Total volume of 0.25% bupivacaine with 1-200,000 units epinephrine, 15 mL.
[2018-03-09] MEDS ORDERED: Ringers Solution, Lactated 1,000 ML IVC SCH (20:39)
--- NOTE | 2018-03-09 20:41 | Anesthesia Evaluation Post Op ---
Date of Encounter: 03/09/18 Time of Encounter: 20:25 - Vital Signs Vital Signs: Vital Signs/O2 Sat/Glucose, Most Current Temp Pulse Resp BP Pulse Ox 03/09/18 20:27 98.6 F 73 16 114/58 97 03/09/18 20:17 98.6 F 81 16 105/41 100 03/09/18 20:07 98.6 F 87 16 98/46 100 03/09/18 19:57 99.7 F H 90 18 108/54 98 - Lungs Lungs: Clear Ascult./Percussion - Airway Airway: Non-obstructed - Cardiovascular Regular Rate - Mental Status Mental Status: Alert & Oriented, Answers Appropriately - Pain Pain Scale: 1 - Nausea Vomiting Nausea Vomiting: Not Present - Hydration Hydration: Ice chips - Discharge PostOp Status: Transfer Patient to floor
[2018-03-09] MEDS: *HR* OxyCODONE Immed Rel 5 MG TABLET PO PRN (21:20)
[2018-03-10 05:59] LABS: Basophils % 0.1 %; Hematocrit 39.4 % (35.3-44.9); Hemoglobin 12.4 g/dL (11.5-15.4); Immature Granulocytes % 0.3 % (0-4); Lymphocytes # 1.1 K/mcL (0.6-4.6); Lymphocytes % 12.4 %; Mean Corpuscular HGB Conc 31.5 g/dL (31.6-35.5); Mean Corpuscular Hemoglobin 24.9 pg (28.0-33.3); Mean Corpuscular Volume 79.1 fL (83.0-100.0); Monocytes # 0.3 K/mcL (0.0-1.3); Monocytes % 3.1 %; Neutrophils # 7.6 K/mcL (1.6-8.9); Platelet Count 309 K/mcL (140-400); Red Blood Count 4.98 M/mcL (3.82-4.97); Red Cell Distribution Width 13.7 % (11.5-14.5); Segmented Neutrophils % 84.1 %
[2018-03-10 06:20] LABS: BUN/Creatinine Ratio 18 (6-26); Blood Urea Nitrogen 12 mg/dL (6-20); Calcium 8.8 mg/dL (8.6-10.3); Carbon Dioxide 21 mEq/L (23-29); Chloride 107 mEq/L (98-107); Glucose 178 mg/dL (70-105); Osmolality,Calculated 282 (280-300); Sodium 134 mEq/L (136-145); eGFR For African Americans > 60 (> 60); eGFR For Non-African Americans > 60 (> 60)
[2018-03-10 07:29] VITALS: BP 132/72
[2018-03-10] MEDS: *HR* OxyCODONE Immed Rel 5 MG TABLET PO PRN (07:57)
--- NOTE | 2018-03-10 09:19 | General Surgery Progress Note ---
Date of Encounter: 03/10/18 Time of Encounter: 09:16 Subjective Narrative: General Surgery - POD #1 Patient feeling well; no nausea vomiting; afebrile, hemodynamically stable with pulse 78, respirations 18, blood pressure 132/72. Incisional pain as expected Lungs: Clear, no obvious abdominal pain on deep inspiration Abdomen: Obese, periumbilical tenderness as expected; the rest the abdomen was soft, without obvious tenderness or peritoneal signs. Active bowel sounds. Patient tolerating diet. Labs: White count 9.1, hemoglobin 12.4 with hematocrit 39.4. Electrolytes notable for sodium of 134 without obvious sequela. Carbon dioxide 21 Impression: Postoperative day 1, status post open repair incarcerated umbilical hernia with mesh. Acceptable postoperative status Plan: Discharge home Outpatient follow-up in approximately 1 week Objective Vital Signs - Last 8 Hours Temp Pulse Resp BP Pulse Ox 03/10/18 07:23 98.1 F 78 18 132/72 97 03/10/18 04:30 98.3 F 81 17 114/71 96 Intake and Output 03/09/18 03/10/18 03/10/18 23:59 07:59 15:59 Intake Total 1500 / 1500 0 / 0 800 / 800 Output Total 500 / 500 350 / 350 Balance 1000 / 1000 -350 / -350 800 / 800 Intake: IV Fluids 900 / 900 800 / 800 Lactated Ringers 1,000 ML @ 75 900 / 900 800 / 800 mls/hr IVC .[id number] [facility] Rx#: [id number] Oral 600 / 600 0 / 0 Output: Urine 500 / 500 350 / 350 Other: Meal Dinner Percent of Meal Consumed 100% Blood Glucose* 89 151 - Labs 03/10/18 05:29 03/10/18 05:29 Diabetes panel 03/10/18 Range/Units 05:29 Sodium 134 L (136-145) mEq/L Potassium 4.0 (3.5-5.1) mEq/L Chloride 107 (98-107) mEq/L Carbon Dioxide 21 L (23-29) mEq/L BUN 12 (6-20) mg/dL Creatinine 0.67 (0.60-1.20) mg/dL Glucose 178 H (70-105) mg/dL Calcium 8.8 (8.6-10.3) mg/dL Calcium panel 03/10/18 Range/Units 05:29 Calcium 8.8 (8.6-10.3) mg/dL Pituitary panel 03/10/18 Range/Units 05:29 Sodium 134 L (136-145) mEq/L Potassium 4.0 (3.5-5.1) mEq/L Chloride 107 (98-107) mEq/L Carbon Dioxide 21 L (23-29) mEq/L BUN 12 (6-20) mg/dL Creatinine 0.67 (0.60-1.20) mg/dL Glucose 178 H (70-105) mg/dL Calcium 8.8 (8.6-10.3) mg/dL Adrenal panel 03/10/18 Range/Units 05:29 Sodium 134 L (136-145) mEq/L Potassium 4.0 (3.5-5.1) mEq/L Chloride 107 (98-107) mEq/L Carbon Dioxide 21 L (23-29) mEq/L BUN 12 (6-20) mg/dL Creatinine 0.67 (0.60-1.20) mg/dL Glucose 178 H (70-105) mg/dL Calcium 8.8 (8.6-10.3) mg/dL - VTE Documentation of Mechanical Device: Intermittent pneumatic compression device Consult Discharge Plan - Plan Referrals: Marc Johnson MD [Non-Partnered Physician] -
--- NOTE | 2018-03-10 09:22 | Discharge Summary ---
Outpatient Proc Discharge Plan - Plan Additional Instructions: Regular diet Patient may shower, wash incision with soap and water Activity as tolerated; lifting limited to less than 20 pounds. Patient may ambulate, climb stairs etc Patient should not drive until at least 24 hours following administration of anesthesia and ability to fully stop in an emergency Tylenol, ibuprofen, Motrin, Advil, etc. as needed for pain Prescription for Percocet 5/325, #12, one every 6 hours as needed for pain not relieved by [id number] medications Outpatient follow-up, ; patient to call office 03/12/2018 , to make this appointment Prescriptions: OxyCODONE/APAP 5/325 [Percocet 5/325 MG] 1 each PO Q6HR PRN 3 Days #12 tablet PRN Reason: Pain Home Medications: Acetaminophen [Tylenol] 650 mg PO Q6HR PRN tablet 03/10/18 [Rx] OxyCODONE/APAP 5/325 [Percocet 5/325 MG] 1 each PO Q6HR PRN 3 Days #12 tablet [Rx]
== END 2018-03-10 11:08 | disposition home or self-care (01) ==
LOC: 3ANU 16:49 → EMEROO 16:49 → 3ANU 03-09 01:59
PROVIDERS: ADMIT Surgery; ATTEND Surgery

== ENCOUNTER 2019-11-01 11:50 | Observation (INO) ==
[2019-11-01 10:20] LABS: Amphetamine Screen,Urine Negative ng/mL (Cutoff=1000); Barbiturate Screen,Urine Negative ng/mL (Cutoff=200); Benzodiazepines Screen,Urine Negative ng/mL (Cutoff=200); Cannabinoid Screen,Urine Negative ng/mL (Cutoff = 50); Cocaine Screen,Urine Negative ng/mL (Cutoff= 300); Opiate Screen,Urine Negative ng/mL (Cutoff=300); Phencyclidine Screen,Urine Negative ng/mL (Cutoff=25)
== END 2019-11-01 17:02 | disposition home or self-care (01) ==
LOC: 1NENULAB
PROVIDERS: ADMIT Advanced Practice Midwife; ATTEND Advanced Practice Midwife

== ENCOUNTER → 2019-11-06 15:08 | Observation (INO) ==
[2019-11-06 13:02] LABS: Amphetamine Screen,Urine Negative ng/mL (Cutoff=1000); Barbiturate Screen,Urine Negative ng/mL (Cutoff=200); Benzodiazepines Screen,Urine Negative ng/mL (Cutoff=200); Cannabinoid Screen,Urine Negative ng/mL (Cutoff = 50); Cocaine Screen,Urine Negative ng/mL (Cutoff= 300); Opiate Screen,Urine Negative ng/mL (Cutoff=300); Phencyclidine Screen,Urine Negative ng/mL (Cutoff=25)
== END | disposition home or self-care (01) ==
LOC: 1NENULAB
PROVIDERS: ADMIT Advanced Practice Midwife; ATTEND Advanced Practice Midwife

== ENCOUNTER → 2019-11-10 14:30 | Observation (INO) ==
[2019-11-10 12:40] LABS: Amphetamine Screen,Urine Negative ng/mL (Cutoff=1000); Barbiturate Screen,Urine Negative ng/mL (Cutoff=200); Benzodiazepines Screen,Urine Negative ng/mL (Cutoff=200); Cannabinoid Screen,Urine Negative ng/mL (Cutoff = 50); Cocaine Screen,Urine Negative ng/mL (Cutoff= 300); Opiate Screen,Urine Negative ng/mL (Cutoff=300); Phencyclidine Screen,Urine Negative ng/mL (Cutoff=25)
== END | disposition home or self-care (01) ==
LOC: 1NENULAB
PROVIDERS: ADMIT Registered Nurse; ATTEND Registered Nurse

== ENCOUNTER 2019-11-15 11:25 | Inpatient (IN) ==
[2019-11-15 12:20] LABS: Amphetamine Screen,Urine Negative ng/mL (Cutoff=1000); Barbiturate Screen,Urine Negative ng/mL (Cutoff=200); Benzodiazepines Screen,Urine Negative ng/mL (Cutoff=200); Cannabinoid Screen,Urine Negative ng/mL (Cutoff = 50); Cocaine Screen,Urine Negative ng/mL (Cutoff= 300); Opiate Screen,Urine Negative ng/mL (Cutoff=300); Phencyclidine Screen,Urine Negative ng/mL (Cutoff=25)
[2019-11-15] MEDS ORDERED: Metoclopramide 10 MG/2 ML VIAL IVP PRN (13:10)
[2019-11-15] MEDS ORDERED: Famotidine 20 MG/2 ML VIAL IVP PRN (13:10)
[2019-11-15] MEDS ORDERED: Naloxone 0.4 MG/ML INJ IVP PRN (13:10)
[2019-11-15] MEDS ORDERED: *HR* Nalbuphine 10 MG/ML AMPUL IVP PRN (13:10)
[2019-11-15] MEDS ORDERED: Ondansetron 4 MG/2 ML VIAL IVP PRN (13:10)
[2019-11-15] MEDS ORDERED: Ringers Solution, Lactated 1,000 ML IVC SCH (13:15)
[2019-11-15 14:06] LABS: Basophils % 0.4 %; Eosinophils # 0.1 K/mcL (0.0-0.6); Hematocrit 34.5 % (35.3-44.9); Hemoglobin 10.8 g/dL (11.5-15.4); Immature Granulocytes % 0.5 % (0-4); Lymphocytes # 1.8 K/mcL (0.6-4.6); Mean Corpuscular HGB Conc 31.3 g/dL (31.6-35.5); Mean Corpuscular Hemoglobin 24.8 pg (28.0-33.3); Mean Corpuscular Volume 79.1 fL (83.0-100.0); Mean Platelet Volume 11.3 fL (9.4-12.4); Monocytes # 0.5 K/mcL (0.0-1.3); Monocytes % 5.2 %; Neutrophils # 7.6 K/mcL (1.6-8.9); Platelet Count 280 K/mcL (140-400); Red Blood Count 4.36 M/mcL (3.82-4.97); Red Cell Distribution Width 14.1 % (11.5-14.5); Segmented Neutrophils % 74.9 %; White Blood Count 10.1 K/mcL (4.3-11.1)
[2019-11-15] MEDS ORDERED: Epidural Premix (fent/bupiv) 110 ML EP SCH (16:45)
[2019-11-15] MEDS ORDERED: Oxytocin 20 units/ LR 1000 mL 20 UNIT/1,000 ML BAG IVC ONE ×2 (17:33→20:17)
[2019-11-15] MEDS ORDERED: Oxytocin 20 units/ LR 1000 mL 20 UNIT/1,000 ML BAG IVC SCH (20:59)
[2019-11-15] MEDS ORDERED: Lanolin 7 G OINT...G. TP PRN (20:59)
[2019-11-15] MEDS ORDERED: Benzocaine/Menthol 56 GM AEROSOL SPRAY TP PRN (20:59)
[2019-11-15] MEDS ORDERED: Acetaminophen 325 MG TABLET PO PRN (20:59)
[2019-11-16] MEDS: Ibuprofen 600 MG TABLET PO PRN ×3 (06:36→21:36)
[2019-11-16] MEDS: *HR* HYDROcodone/Acet 5/325 mg TABLET PO PRN ×2 (08:18→17:21)
[2019-11-16] MEDS: Prenatal Vit/FA 1 EACH TABLET PO SCH (08:18)
[2019-11-17] MEDS: *HR* HYDROcodone/Acet 5/325 mg TABLET PO PRN (06:08)
[2019-11-17 08:21] VITALS: BP 118/70
[2019-11-17] MEDS: Prenatal Vit/FA 1 EACH TABLET PO SCH (09:40)
== END 2019-11-17 14:00 | disposition home or self-care (01) | DRG 560 ==
LOC: 1NENULAB → OBSVTOIN 11:25 → 1NENUOBS 20:34
PROVIDERS: ADMIT Advanced Practice Midwife; ATTEND Advanced Practice Midwife

== ENCOUNTER 2022-03-16 21:04 | Observation (INO) ==
[2022-03-17 00:05] LABS: Basophils # 0.1 K/mcL (0.0-0.2); Basophils % 0.5 %; Eosinophils # 0.2 K/mcL (0.0-0.6); Eosinophils % 1.6 %; Hematocrit 38.6 % (35.3-44.9); Hemoglobin 12.1 g/dL (11.5-15.4); Immature Granulocytes % 0.5 % (0-4); Lymphocytes # 2.4 K/mcL (0.6-4.6); Mean Corpuscular HGB Conc 31.3 g/dL (31.6-35.5); Mean Corpuscular Hemoglobin 25.8 pg (28.0-33.3); Mean Corpuscular Volume 82.3 fL (83.0-100.0); Mean Platelet Volume 10.9 fL (9.4-12.4); Monocytes # 0.5 K/mcL (0.0-1.3); Monocytes % 4.2 %; Neutrophils # 7.9 K/mcL (1.6-8.9); Platelet Count 298 K/mcL (140-400); Red Blood Count 4.69 M/mcL (3.82-4.97); Red Cell Distribution Width 13.6 % (11.5-14.5); Segmented Neutrophils % 71.2 %
[2022-03-17 00:24] LABS: Bacteria,Urine Few per hpf (None-Few); Bilirubin,Urine Negative (Negative); Blood,Urine Large (Negative); Clarity,Urine Clear (Clear); Color,Urine Yellow (Yellow); Glucose,Urine (UA) Normal (Normal); Ketones,Urine Negative (Negative); Leukocyte Esterase,Urine Large (Negative); Nitrite,Urine Negative (Negative); PH,Urine 6.5 pH Units (5.0-8.0); Protein,Urine Trace mg/dL (Neg-Trace); RBC,Urine 0-3 per hpf (0-3); Specific Gravity,Urine 1.027 (1.010-1.025); Squamous Epithelial Cell,Urine Few per hpf (None-Few); WBC,Urine 15-30 per hpf (0-3)
[2022-03-17 00:28] LABS: Alanine Aminotransferase 19 Units/L (7-52); Albumin 3.9 g/dL (3.5-5.7); Albumin/Globulin Ratio 1.2 (1.1-2.2); Alkaline Phosphatase 73 Units/L (34-104); Aspartate Amino Transferase 22 Units/L (13-39); BUN/Creatinine Ratio 12 (6-26); Bilirubin,Direct 0.1 mg/dL (0.0-0.2); Bilirubin,Indirect 0.7 mg/dL (0.0-1.0); Bilirubin,Total 0.8 mg/dL (0.3-1.0); Blood Urea Nitrogen 8 mg/dL (6-20); Calcium 8.9 mg/dL (8.6-10.3); Carbon Dioxide 23 mEq/L (23-29); Chloride 107 mEq/L (98-107); Globulin 3.2 g/dL (2.4-3.5); Glucose 113 mg/dL (70-105); Osmolality,Calculated 285 (280-300); Potassium 3.9 mEq/L (3.5-5.1); Sodium 138 mEq/L (136-145); Total Protein 7.1 g/dL (6.4-8.9); eGFR For African Americans > 60 (> 60); eGFR For Non-African Americans > 60 (> 60)
[2022-03-17] MEDS ORDERED: *HR* Midazolam HCl 2 MG/2 ML VIAL ONE (06:08)
[2022-03-17] MEDS ORDERED: *HR* FentaNYL (PF) 100 MCG/2 ML VIAL ONE (06:08)
[2022-03-17] MEDS ORDERED: Lidocaine HCL 4 ML Topical Solution (Laryng-O-Jet Kit Sterile Pak) TP ONE (06:11)
[2022-03-17] MEDS ORDERED: Ondansetron 4 MG/2 ML VIAL ONE (06:11)
[2022-03-17] MEDS ORDERED: Lidocaine -MPF 2% 2 ML VIAL ONE (06:11)
[2022-03-17] MEDS ORDERED: *HR* Succinylcholine 200 MG/10 ML VIAL IVP ONE (06:11)
[2022-03-17] MEDS ORDERED: *HR* Rocuronium Bromide 50 MG/5 ML VIAL ONE ×2 (06:11→07:09)
[2022-03-17] MEDS ORDERED: Bupivacaine/EPI 1:200k 0.25% 50 ML VIAL ONE (06:24)
[2022-03-17] MEDS ORDERED: Ondansetron 4 MG/2 ML VIAL IVP PRN (06:28)
[2022-03-17] MEDS ORDERED: *HR* HYDROmorphone PF 0.5 MG/0.5 ML SYRINGE IVP PRN (06:28)
[2022-03-17] MEDS ORDERED: *HR* OxyCODONE Immed Rel 5 MG TABLET PO PRN (06:28)
[2022-03-17] MEDS ORDERED: *HR* HYDROMORPHONE 2 MG/ML VIAL ONE (07:18)
[2022-03-17] MEDS ORDERED: ceFAZolin 3,000 MG in Water for inj. (sterile) 30 ML IVP ONE (07:18)
[2022-03-17] MEDS ORDERED: CeFAZolin Syr 3,000MG/30 ML 3,000 MG/30 ML SYRINGE IVPB ONE (07:30)
[2022-03-17] MEDS ORDERED: *HR* HYDROcodone/Acet 5/325 mg TABLET PO PRN (09:15)
[2022-03-17] MEDS ORDERED: Ringers Solution, Lactated 1,000 ML IVC SCH (09:15)
[2022-03-17] MEDS ORDERED: Naloxone 0.4 MG/ML INJ IVP PRN (09:15)
[2022-03-17] MEDS ORDERED: *HR* OxyCODONE/APAP 5/325 TABLET PO PRN (09:15)
[2022-03-17 12:44] VITALS: BP 125/72; PULSE 92; TEMP 98.6; O2SAT 96
== END 2022-03-17 14:30 | disposition home or self-care (01) ==
LOC: 1NENUOBS 21:04 → EMEROOARM 21:04 → 1NENUOBS 03-17 06:19
PROVIDERS: ADMIT Obstetrics & Gynecology; ATTEND Obstetrics & Gynecology